=== PATIENT | male | born 2005 | race Caucasian/White ===

== ENCOUNTER 2023-03-08 15:31 | Inpatient (IN) ==
--- NOTE | 2023-03-08 15:42 | ED Triage Note ---
Date of Service March 08, 2023 Provider in Triage Author: Farideh Uriostegui History of Present Illness This patient was briefly evaluated while in triage. An abbreviated physical exam was performed. This patient is a 17-year-old Male who presents to the ED for evaluation of epigastric abdominal pain. Symptoms started yesterday. Notes 2 episodes of vomiting yesterday and diarrhea. He reports subjective jaundice. Denies fevers. Denies PMH. No alcohol use. Denies recent trauma. Physical Exam Constitutional: alert and oriented x3. no acute distress. HEENT: normocephalic, atraumatic. normal conjunctiva.PERRLA. EOM's grossly intact. Respiratory: equal chest rise. normal respiratory effort, no accessory muscle use. Cardiovascular: regular rate and rhythm. MSK: moves all 4 extremities spontaneously Psych:appropriate mood and affect. Initial orders for labs and / or imaging were placed and patient was placed in the waiting area until a bed is available. Please see further documentation for the full ED course.
[2023-03-08 16:40] LABS: Appearance Urine Clear (Clear); Bacteria Urine Automated Negative (Negative); Blood Urine Trace (Negative); Color Urine Dark Yellow; Epithelial Cell Urine Auto 0-5 /lpf (0-5); Glucose Urine UA Negative (Negative); Ketones Urine 3+ (Negative); Leukocyte Esterase Urine 1+ (Negative); Nitrite Urine Positive (Negative); Urobilinogen Urine Negative (Negative); pH Urine 7.5 (4.5-7.5)
[2023-03-08 16:41] LABS: Bilirubin Urine 2+ (Negative); Protein Urine Trace (Negative)
--- NOTE | 2023-03-08 16:43 | Electrocardiogram Report ---
Test Reason : Blood Pressure : / mmHG Vent. Rate : 090 BPM Atrial Rate : 090 BPM P-R Int : 150 ms QRS Dur : 090 ms QT Int : 348 ms P-R-T Axes : 039 055 016 degrees QTc Int : 425 ms Normal sinus rhythm Diffuse Minor Nonspecific T wave abnormality Abnormal ECG No previous ECGs available Confirmed by Tao Pacheco ([id number]) on 03/08/2023 4:43:03 PM Referred By: Confirmed By:Tao Pacheco
[2023-03-08 16:54] LABS: Basophils # (auto) 0.04 K/uL (0.00-0.20); Basophils % (auto) 0.4 %; Eosinophils # (auto) 0.24 K/uL (0.00-0.50); Eosinophils % (auto) 2.2 %; Hematocrit (blood only) 40.9 % (42.0-52.0); Immature Granulocytes # (auto) 0.03 K/uL (0.01-0.20); Immature Granulocytes % (auto) 0.3 %; Lymphocytes # (auto) 0.88 K/uL (1.20-3.40); Lymphocytes % (auto) 7.9 %; Mean Corpuscular Hemoglobin 30.5 pg (25.0-34.0); Mean Corpuscular Hgb Conc 34.2 g/dL (32.0-36.0); Mean Corpuscular Volume 89.1 fL (80.0-100.0); Mean Platelet Volume 9.8 fL (9.4-12.4); Monocytes % (auto) 10.8 %; Neutrophils # (auto) 8.73 K/uL (1.40-6.50); Neutrophils % (auto) 78.4 %; Platelet Count 215 K/uL (130-400); RDW Coefficient of Variation 12.1 % (11.5-14.5); RDW Standard Deviation 39.3 fL (36.4-46.3); Red Blood Count 4.59 M/uL (4.70-6.10); White Blood Count 11.12 K/ul (4.8-10.8)
--- NOTE | 2023-03-08 17:02 | XRay Report ---
XR chest 1V not portable CLINICAL HISTORY: Abdominal pain. COMPARISON STUDY: No previous studies for comparison. FINDINGS: Lung volumes are normal. Lungs are clear. There is no pneumothorax or pleural effusion. Car diac size is normal. Mediastinal contours are normal. There is no evidence for pulmonary edema. There is no lucency under the hemidiaphragms to suggest pneumoperitoneum on upright chest radiograph. IMPRESSION: No acute cardiopulmonary findings. ACT 112: Negative or not required by law. Electronically signed by: Julián Alvarado M.D. 03/08/2023 5:01 PM
[2023-03-08 17:10] LABS: Alanine Aminotransferase 362 U/L (7-52); Albumin Globulin Ratio 1.5 (0.9-2); Albumin Level 4.8 gm/dl (3.4-5.0); Alkaline Phosphatase 196 U/L (34-104); Anion Gap 9 (3-11); Aspartate Aminotransferase 134 U/L (13-39); BUN Creatinine Ratio 9.6 (10-20); Blood Urea Nitrogen 11 mg/dl (6-23); Calcium 9.9 mg/dl (8.6-10.3); Carbon Dioxide 29 mmol/L (21-32); Chloride 102 mmol/L (98-107); Est GFR (African American) 107.5 ml/min; Est GFR (Non-African American) 92.7 ml/min; Globulin 3.1 gm/dl (2.5-4.0); Glucose 92 mg/dl (70-99(Fasting)); Lipase 27 U/L (11-82); Potassium 3.7 mmol/L (3.5-5.1); Sodium 140 mmol/L (136-145); Total Protein 7.9 gm/dl (6.0-8.3)
[2023-03-08] MEDS ORDERED: OPTIRAY 320 500ml IV ONE (17:25)
--- NOTE | 2023-03-08 17:44 | CT Scan Report ---
CT OF THE ABDOMEN AND PELVIS WITH CONTRAST CLINICAL HISTORY: Abdominal pain. Jaundice. COMPARISON STUDY: None. TECHNIQUE: Following IV administration of 83 mL of Optiray, axial images of the abdomen and pelvis we re obtained from the lung bases to the proximal femurs. Images were reviewed in the axial, sagittal, and coronal planes. IV contrast was administered without complication. Automated exposure control wa s utilized for the study. A dose lowering technique was utilized adhering to the principles of ALARA . CT DOSE: 680.12 mGy.cm FINDINGS: Lung bases are unremarkable. No pneumatosis, free air or portal venous gas is present. Live r is unremarkable by CT. There is no biliary or pancreatic ductal dilatation. No peripancreatic or pe richolecystic infiltration is present. Spleen, adrenal glands, kidneys and pancreas are unremarkable. There is no hydronephrosis. Prominent clustered ileocolic lymph nodes are likely benign. Appendix is normal. There is no free fluid. Caliber and wall thickness of small and large bowel are normal. The major vessels are patent. There is no ascites. There is no lymphadenopathy. IMPRESSION: 1. No acute process within the abdomen or pelvis. 2. No biliary ductal dilatation. No hepatic lesions. Unremarkable CT appearance of the liver. 3. Prominent clustered ileocolic lymph nodes which are likely benign. ACT 112: Negative or not required by law. Electronically signed by: Julián Alvarado M.D. 03/08/2023 5:42 PM
[2023-03-08 18:11] LABS: Bilirubin Direct 5.2 mg/dl (0-0.2)
[2023-03-08] MEDS ORDERED: SODIUM CHLORIDE 0.9% 1,000 ML IV ONE (18:12)
[2023-03-08 19:13] LABS: INR 1.1 (0.9-1.1); Prothrombin Time 11.8 Seconds (9.0-12.0)
--- NOTE | 2023-03-08 19:20 | History & Physical Report ---
Date of Service March 08, 2023 Assessment & Plan (1) Acute hepatitis: Plan: -Admit to med/tele -Currently hemodynamically stable, stable on RA, and non-toxic appearing -Presented to the ED today for new onset scleral icterus and possible jaundice -Total bili, ALT, AST, and Alk phos all elevated, AST:ALT not indicative of alcohol induced hepatitis -INR is WNL -Chest xray was negative for acute findings -CT of the abd/pelvis w/con was negative for acute processes and was without signs of biliary ductal dilation of structural hepatic abnormalities -Would think his symptoms would have started earlier and prior to stopping Ashwagandha -Tonsil erythema and swelling is suspicious for viral illness or strep infection, continue to follow workup -Will also obtain CMV and EBV screens, acute hepatitis panel for further evaluation -GI has been consulted and will follow, they do not think that his presentation is due to obstruction at this time and they do not recommend starting N- Acetylcystine therapy at this time for acute hepatitis -Will give light IV hydration overnight -Avoid hepatotoxic agents -OOB for DVT PPX -Regular diet -AM CBC, CMP, mag, PT/INR (2) Chest pain: Plan: -Patient notes substernal chest pain with inspiration -He describes the discomfort as feeling as though something is in his chest -Chest xray negative for acute findings -Low suspicion for PE at this time as he is stable on RA, in NSR, hemodynamically stable, and without signs of DVT in the BL LE's -ECG shows diffuse T-wave elevations -Possible he could have pericarditis or myocarditis -Will obtain high sen trop on admission and order TTE for tomorrow -Continue to monitor on tele (3) Enlarged tonsils: Plan: -Noted on exam, no sing of stridor or airway compromise -EBV screen was negative -Will add on Group A strep PCR -Continue to follow infectious workup Plan The patient was discussed with Dr. Camejo at the time of the admission History of Present Illness Chief Complaint: Scleral icterus and jaundice Primary Care Provider: [facility] [[email or web address]] Kirk is a 17 year old male with no significant PMH who presented to the [facility] ED on 03/08/23 after developing Scleral icterus and jaundice. He remained stable in the ED. Labs were significant for a leukocytosis of 11 with neutrophil predominance of 8, lymphocyte count of 0.88, total bili of 8.0, direct bili of 5.2, AST of 134, ALT of 362, alk phos of 196, and UA with trace protein, 3+ ketones, trace blood, positive nitrites, 2+ bilirubin, 1+ leukocyte esterase, and 10-30 RBC's. Chest xray was negative for acute findings. CT of the abd/pelvis w/IV con was read as "1. No acute process within the abdomen or pelvis. 2. No biliary ductal dilatation. No hepatic lesions. Unremarkable CT appearance of the liver. 3. Prominent clustered ileocolic lymph nodes which are likely benign.". The ED staff spoke with GI who recommended admission with ongoing workup of his acute hepatitis. Prior to admission the patient was ordered 1L NSS. At the time of the exam the patient was sitting in bed in no acute distress. He states that he was in his normal state of health until 03/06. He states that we woke up feeling generally unwell with symptoms such as congestion, body aches, sore throat, nausea, vomiting, non-bloody diarrhea. He states that his symptoms continued through today when he noticed scleral icterus and mild jaundice. He called his uncle who is a Physician who recommended going to the ED for evaluation. When asked, the patient denies recent alcohol use in the past 3 weeks. He denies tobacco or vaping use. He was working out consistently prior to winter and did not work out over . On 03/06 he said he did a very light upper body weight lifting workup. He took 2 doses of Dayquil and one dose of Nyquil since the symptoms started. When asked about supplements he states that he was taking 600 mg daily of Ashwagandha for 3 months last semester while working out. He states he stopped taking it approximately one month ago as he finished the bottle he bought. He has noted substernal chest pain with inspiration with his recent symptoms but denies hemoptysis, coffee ground emesis, and melena. He is not on prescription medications and denies previous history of severe illness or diagnoses as a child. Please refer to Dr. Camejo's attestation for any changes to the treatment plan Allergies Allergy/AdvReac Type Severity Reaction Status Date / Time pollen extracts Allergy Mild Sneezing Verified 03/08/23 18:18 tree and shrub pollen Allergy Mild Sneezing Verified 03/08/23 18:18 Home Medications Medication Instructions Recorded Confirmed Type IT-KH-rdscqr/BU-prnkcg-pzirtnd 1 cap PO DIRECTED PRN Cold 03/08/23 03/08/23 History 10-5-325mg(d)/15-325-6.25mg Symptoms capsules (Vicks DayQuil-NyQuil) ibuprofen 200 mg tablet 400 mg PO Q6H PRN PAIN/FEVER 03/08/23 03/08/23 History Past Med/Surg History Social History Smoking Status: Unknown if ever smoked Preferred Language: Lithuanian Communication Ability: Effective Guide Domestic Tour Required: No Feels Safe at Home: Yes Physical Exam Physical Exam: Physical Exam: General: In no acute distress, stated age, well-nourished, good hygiene HEENT: Normocephalic, atraumatic, + scleral icterus, pupils around round, symmetrical, and reactive to light, moist mucus membranes, patient with erythematous and swollen tonsils, + submandibular lymphadenopathy, trachea midline, no thyromegaly Chest/Pulm: No respiratory distress, symmetrical chest expansion, clear breath sounds throughout Cardiac: RRR, no murmurs noted Abdomen: Negative for ascites and bruising, normoactive bowel sounds, soft, tender to palpation in the RUQ but otherwise non-tender Musculoskeletal: Symmetrical and without signs of acute trauma, upper and lower extremities with full ROM, no atrophy, spasticity, or flaccidity Extremities: Radial, dorsalis pedis, and posterior tibial pulses are intact and symmetrical, no edema noted in the BL LE's Skin: Patient with Scarlatiniform rash noted on the BL forearms Neuro: Alert and oriented to person, place, month, year, and president, no focal defects, no tremors noted Psych: No acute distress, calm and cooperative during the exam Results & Data Results & Data Vital Signs (Past 12 Hours) Vital Signs Temp Pulse Pulse Resp BP BP Pulse Ox 03/08/23 17:34 86 16 112/70 97 03/08/23 15:39 36.9 C 82 16 132/77 95 O2 Del Method 03/08/23 17:34 03/08/23 15:39 Room Air Laboratory Results Abnormal lab results 03/08/23 03/08/23 03/08/23 Range/Units 16:09 16:16 18:53 WBC 11.12 H (4.8-10.8) K/ul RBC 4.59 L (4.70-6.10) M/uL Hct 40.9 L (42.0-52.0) % Neut # (Auto) 8.73 H (1.40-6.50) K/uL Lymph # (Auto) 0.88 L (1.20-3.40) K/uL Hernando # (Auto) 1.20 H (0.11-0.59) K/uL BUN/Creatinine Ratio 9.6 L (10-20) Total Bilirubin 8.0 H (0.2-1.0) mg/dl Direct Bilirubin 5.2 H (0-0.2) mg/dl AST 134 H (13-39) U/L ALT 362 H (7-52) U/L Alkaline Phosphatase 196 H (34-104) U/L Urine Protein Trace H (Negative) Urine Ketones 3+ H (Negative) Urine Blood Trace H (Negative) Urine Nitrite Positive A (Negative) Urine Bilirubin 2+ H (Negative) Ur Leukocyte Esterase 1+ H (Negative) Urine RBC (Auto) 10-30 H (0-4) /hpf Acetaminophen < 3 L (10-30) ug/ml Diagnostic Findings Chest X-Ray 03/08/23 16:07 XR chest 1V not portable CLINICAL HISTORY: Abdominal pain. COMPARISON STUDY: No previous studies for comparison. FINDINGS: Lung volumes are normal. Lungs are clear. There is no pneumothorax or pleural effusion. Cardiac size is normal. Mediastinal contours are normal. There is no evidence for pulmonary edema. There is no lucency under the hemidiaphragms to suggest pneumoperitoneum on upright chest radiograph. IMPRESSION: No acute cardiopulmonary findings. ACT 112: Negative or not required by law. Electronically signed by: Julián Alvarado M.D. 03/08/2023 5:01 PM Abdomen/Pelvis CT 03/08/23 16:45 CT OF THE ABDOMEN AND PELVIS WITH CONTRAST CLINICAL HISTORY: Abdominal pain. Jaundice. COMPARISON STUDY: None. TECHNIQUE: Following IV administration of 83 mL of Optiray, axial images of the abdomen and pelvis were obtained from the lung bases to the proximal femurs. Images were reviewed in the axial, sagittal, and coronal planes. IV contrast was administered without complication. Automated exposure control was utilized for the study. A dose lowering technique was utilized adhering to the principles of ALARA. CT DOSE: 680.12 mGy.cm FINDINGS: Lung bases are unremarkable. No pneumatosis, free air or portal venous gas is present. Liver is unremarkable by CT. There is no biliary or pancreatic ductal dilatation. No peripancreatic or pericholecystic infiltration is present. Spleen, adrenal glands, kidneys and pancreas are unremarkable. There is no hydronephrosis. Prominent clustered ileocolic lymph nodes are likely benign. Appendix is normal. There is no free fluid. Caliber and wall thickness of small and large bowel are normal. The major vessels are patent. There is no ascites. There is no lymphadenopathy. IMPRESSION: 1. No acute process within the abdomen or pelvis. 2. No biliary ductal dilatation. No hepatic lesions. Unremarkable CT appearance of the liver. 3. Prominent clustered ileocolic lymph nodes which are likely benign. ACT 112: Negative or not required by law. Electronically signed by: Julián Alvarado M.D. 03/08/2023 5:42 PM ECG Additional Comments: Normal sinus rhythm Diffuse Minor Nonspecific T wave abnormality Abnormal ECG No previous ECGs available Confirmed by Tao Pacheco ([id number]) on 03/08/2023 4:43:03 PM Code Status & VTE Plan Code Status Full code VTE Prophylaxis Plan VTE Prophylaxis will be ordered: Yes Supervising Physician Co-Signing Physician Notes I personally saw and examined the patient. I verified all moseley points and agree with Jethro Barone PA-C with the following exceptions and/or additions: 17 year old male presents to the ER with scleral icterus and jaundice. Mild epigastric abdominal pain, loss of appetite and generalized fatigue. Also having pleuritic chest pain. No history of hepatitis or liver problems. O/E A&Ox3, well appearing other than jaundiced skin, scleral icterus present, Enlarged and erythematous right tonsil without exudate, HS RRR, no murmurs, Chest CTAB, Abdo mild epigastric pain without rebound or guarding A/P Acute hepatitis - presumably viral given associated macular papular rash on left arm, swollen tonsils, lack of obstruction on CT or significant abdominal pain. CMV, EBV panel sent. Discussed HIV testing but low suspicion of this and will await further workup. No liver failure or suspected excessive acetaminophen to warrant NAC at this stage. Consult GI. Trend LFTs, INR, Plt. Chest pain - ?pleurisy vs. pericarditis. No hypoxia or tachycardia to suggest PE. No EKG changes and troponin negative. TTE ordered for AM. Avoid NSAIDs in setting of acute hepatitis. PG Care Time/CCT Total # of Minutes Spent Total Time Spent with Patient: Total time spent is greater than 50% in coordination of care (as documented) at patient's floor/unit and/or counseling patient: [place] [address] INT INP/OBS CARE 3/75MIN Patient Type New Medical Decision Making High Complexity Diagnoses Acute hepatitis B17.9 Chest pain R07.9 Enlarged tonsils J35.1
[2023-03-08] MEDS ORDERED: FAMOTIDINE 20 MG in SYRINGE 3 ML IV STA (19:46)
[2023-03-08] MEDS ORDERED: FAMOTIDINE 20MG IV PUSH 20 MG/5 ML SYR IV STA (19:48)
[2023-03-08] MEDS ORDERED: ONDANSETRON INJ 2 MG/ML 2 ML VIAL ONE (20:24)
[2023-03-08] MEDS ORDERED: ONDANSETRON INJ 2 MG/ML 2 ML VIAL IV STA (20:24)
[2023-03-08] MEDS ORDERED: ONDANSETRON INJ 2 MG/ML 2 ML VIAL IV PRN (20:24)
[2023-03-08 20:40] LABS: Adenovirus PCR Not Detected (NotDetected); Bordetella parapertussis PCR Not Detected (NotDetected); Bordetella pertussis PCR Not Detected (NotDetected); Chlamydia pneumoniae PCR Not Detected (NotDetected); Coronavirus 229E PCR Not Detected (NotDetected); Coronavirus CoV-2 (COVID19)PCR Not Detected (NotDetected); Coronavirus HKU1 PCR Not Detected (NotDetected); Coronavirus NL63 PCR Not Detected (NotDetected); Coronavirus OC43PCR Not Detected (NotDetected); Human Metapneumovirus PCR Not Detected (NotDetected); Influenza A PCR Not Detected (NotDetected); Influenza B PCR Not Detected (NotDetected); Mycoplasma pneumoniae PCR Not Detected (NotDetected); Parainfluenza Virus 1 PCR Not Detected (NotDetected); Parainfluenza Virus 2 PCR Not Detected (NotDetected); Parainfluenza Virus 3 PCR Not Detected (NotDetected); Parainfluenza Virus 4 PCR Not Detected (NotDetected); Respiratory Syncytial VirusPCR Not Detected (NotDetected); Rhinovirus/Enterovirus PCR Not Detected (NotDetected)
[2023-03-08 21:20] LABS: Troponin I High Sensitivity 5.1 pg/ml (0-20)
[2023-03-08] MEDS: PLASMA-LYTE A 1,000 ML IV SCH (22:19)
--- NOTE | 2023-03-08 22:20 | Emergency Department Note ---
Impression & Plan Acute hepatitis, Abdominal pain, Elevated bilirubin ED Provider Note NAME: BARTOLOME SWANSON AGE: 17 SEX: M : 2005 ARRIVES VIA: Walk-In INFORMANT: Patient ED PROVIDER(S): Jef Santos DO CHIEF COMPLAINT: weak HPI: Patient is a 17-year-old male who presents the ER as he notes he has not been feeling well since Monday. He notes he has had some mild epigastric discomfort associate with nausea. He denies any headache or change in vision. No chest pain or shortness of breath with exception of the pain coming from the epigastric region up into the chest. No dysuria urgency or frequency. No other exacerbating or remitting factors. He has noticed that his urine has been dark in color. No pale stools that he is aware of. No previous abdominal surgeries. He has not been taking Tylenol. He has not drank alcohol in over 3 weeks and drinks about once a week. ADDITIONAL HISTORY OBTAINED: Per HPI Chronic Medical/Social Conditions Affecting Care: Per HPI PAST MEDICAL HISTORY:See Below PAST SURGICAL HISTORY:See Below FAMILY HISTORY:See Below SOCIAL HISTORY:See Below HOME MEDICATIONS:See Below ALLERGIES:See Below VITALS:See Below PHYSICAL EXAMINATION: GENERAL: Sitting up in bed, alert, well appearing, well nourished, no distress, non-toxic EYES: Scleral icterus EYE EXAM: normal conjunctiva. OROPHARYNX:mucous membranes are moist NECK: supple, no nuchal rigidity, no adenopathy, non-tender LUNGS: Clear to auscultation. Normal chest wall mechanics HEART: no murmurs, S1 normal and S2 normal ABDOMEN: abdomen soft, non-tender, normo-active bowel sounds, no masses, no rebound or guarding. UPPER EXTREMITIES: upper extremities are grossly normal. LOWER EXTREMITIES: No pitting edema. NEURO EXAM: Normal sensorium, cranial nerves II-XII grossly intact, normal speech, no gross weakness of arms, no gross weakness of legs. MEDICAL DECISION MAKING: Patient is a 17-year-old male who presents ER for above-stated complaint. IV was established blood work was obtained. Labs show mild leukocytosis of 11,000. No significant anemia. INR unremarkable. BMP was unremarkable as well. T. bili at 8. Direct at 5. LFTs were elevated. Alk phos slightly elevated. Troponin was negative. Lipase was negative. Pro-Vinh was negative. CT abdomen pelvis showed no biliary abnormalities and normal liver. Discussed with gastroenterology and question hepatitis. Hepatitis panel was added mono was negative. Strep was negative. Discussed with the hospitalist for further evaluation management and treatment. Consults/Care Managements Discussions: Per MDM Triage Nursing notes reviewed. Limited review of prior medical records performed Vital Signs: reviewed and remarkable for HTN Differential diagnosis: Differential diagnoses includes but is not limited to gastritis, peptic ulcer disease, GERD, gallbladder disease, pancreatitis, small bowel obstruction, appendicitis, diverticulitis, hernia, urinary tract infection, torsion, perforation, trauma, infectious. ER treatment provided: See below Diagnostics interpreted by me include EKG and cardiac monitoring as listed below: -Cardiac Monitoring: An order was placed for continuous cardiac monitoring. The monitor shows a rate of 70 with sinus rhythm. -Laboratory studies:Interpreted by me as stated above in MDM and shown below. Imaging studies: Xrays: As interpreted by me: Portable AP upright 1 view of the chest shows no focal infiltrate CTs show: CT abdomen pelvis per radiology shows no acute pathology Procedures:none Critical Care: None Past Med/Surg History Social History Smoking Status: Unknown if ever smoked Preferred Language: Macedonian Feels Safe at Home: Yes Allergies Allergies Allergy/AdvReac Type Severity Reaction Status Date / Time pollen extracts Allergy Mild Sneezing Verified 03/08/23 18:18 tree and shrub pollen Allergy Mild Sneezing Verified 03/08/23 18:18 Home Meds Home Medications Medication Instructions Recorded Confirmed [id number]-kbdmll/MD-fveaxm-xbmnnlc 1 cap PO DIRECTED PRN Cold 03/08/23 03/08/23 10-5-325mg(d)/15-325-6.25mg Symptoms capsules (Vicks DayQuil-NyQuil) ibuprofen 200 mg tablet 400 mg PO Q6H PRN PAIN/FEVER 03/08/23 03/08/23 Results & Data (ED) Vital Signs Vital Signs - 24 hr 03/08/23 15:39 03/08/23 17:34 Temperature 36.9 C Temperature Source Temporal Artery Scan Pulse Rate 82 Pulse Rate [Finger] 86 Respiratory Rate 16 16 Respiratory Effort / Characteristics Non-Labored Spontaneous Respiratory Depth Normal Blood Pressure 132/77 Blood Pressure [Left Arm] 112/70 Blood Pressure Mean 95 Blood Pressure Mean [Left Arm] 84 Pulse Oximetry 95 97 Oxygen Delivery Method Room Air Sepsis Recent Fever Within 48 Hours No Sepsis New/Unexplained Change in Mental Status N/A Sepsis Action Taken by Nursing No Action Required Laboratory Data 03/08/23 16:16 03/08/23 16:16 Lab Results 03/08/23 03/08/23 Range/Units 16:09 16:16 WBC 11.12 H (4.8-10.8) K/ul RBC 4.59 L (4.70-6.10) M/uL Hgb 14.0 (14.0-18.0) g/dl Hct 40.9 L (42.0-52.0) % MCV 89.1 (80.0-100.0) fL MCH 30.5 (25.0-34.0) pg MCHC 34.2 (32.0-36.0) g/dL RDW Std Deviation 39.3 (36.4-46.3) fL RDW Coeff of Jakub 12.1 (11.5-14.5) % Plt Count 215 (130-400) K/uL MPV 9.8 (9.4-12.4) fL Immature Gran % (Auto) 0.3 % Neut % (Auto) 78.4 % Lymph % (Auto) 7.9 % Lander % (Auto) 10.8 % Eos % (Auto) 2.2 % Baso % (Auto) 0.4 % Neut # (Auto) 8.73 H (1.40-6.50) K/uL Lymph # (Auto) 0.88 L (1.20-3.40) K/uL Lander # (Auto) 1.20 H (0.11-0.59) K/uL Eos # (Auto) 0.24 (0.00-0.50) K/uL Baso # (Auto) 0.04 (0.00-0.20) K/uL Immature Gran # (Auto) 0.03 (0.01-0.20) K/uL PT 11.8 (9.0-12.0) Seconds INR 1.1 (0.9-1.1) Sodium 140 (136-145) mmol/L Potassium 3.7 (3.5-5.1) mmol/L Chloride 102 (98-107) mmol/L Carbon Dioxide 29 (21-32) mmol/L Anion Gap 9 (3-11) BUN 11 (6-23) mg/dl Creatinine 1.14 (0.6-1.4) mg/dl Est Cr Clr Drug Dosing Not Reportable Est GFR ( Amer) 107.5 ml/min Est GFR (Non-Af Amer) 92.7 ml/min BUN/Creatinine Ratio 9.6 L (10-20) Glucose 92 (70-99(Fasting)) mg/dl Calcium 9.9 (8.6-10.3) mg/dl Total Bilirubin 8.0 H (0.2-1.0) mg/dl Direct Bilirubin 5.2 H (0-0.2) mg/dl AST 134 H (13-39) U/L ALT 362 H (7-52) U/L Alkaline Phosphatase 196 H (34-104) U/L Troponin I High Sens 5.1 (0-20) pg/ml Total Protein 7.9 (6.0-8.3) gm/dl Albumin 4.8 (3.4-5.0) gm/dl Globulin 3.1 (2.5-4.0) gm/dl Albumin/Globulin Ratio 1.5 (0.9-2) Lipase 27 (11-82) U/L Procalcitonin 0.30 (0-0.5) ng/ml Urine Color Dark Yellow Urine Appearance Clear (Clear) Urine pH 7.5 (4.5-7.5) Ur Specific [place] 1.020 (1.000-1.030) Urine Protein Trace H (Negative) Urine Glucose (UA) Negative (Negative) Urine Ketones 3+ H (Negative) Urine Blood Trace H (Negative) Urine Nitrite Positive A (Negative) Urine Bilirubin 2+ H (Negative) Urine Urobilinogen Negative (Negative) Ur Leukocyte Esterase 1+ H (Negative) Urine WBC (Auto) 1-5 (0-5) /hpf Urine RBC (Auto) 10-30 H (0-4) /hpf U Hyaline Cast (Auto) 1-5 (0-5) /lpf U Epithel Cells (Auto) 0-5 (0-5) /lpf Urine Bacteria (Auto) Negative (Negative) Monoscreen Negative (Negative) Administered Medications Discontinued Medications Sodium Chloride (Nss) 1,000 mls @ 999 mls/hr IV .Q1H1M ONE Stop: 03/08/23 19:12 Last Infusion: 03/08/23 19:47 Dose: Infused Documented By: Admin: 03/08/23 18:54 Dose: 999 mls/hr Documented By: MARK Famotidine (Pepcid 20mg Iv Push) 20 mg in 5 mls @ 2.5 mls/min IV NOW STA Stop: 03/08/23 19:49 Last Admin: 03/08/23 20:14 Dose: 2.5 mls/min Documented By: TORITO Ioversol (Optiray 320 500ml) 83 ml IV ONCE ONE Stop: 03/08/23 17:26 Last Admin: 03/08/23 17:25 Dose: 83 ml Documented By: JESSICA Ondansetron HCl (Ondansetron Inj 2 Mg/Ml 2 Ml Vial) 4 mg IV NOW STA Stop: 03/08/23 20:25 Last Admin: 03/08/23 20:30 Dose: Not Given Documented By: TORITO Ondansetron HCl (Ondansetron Inj 2 Mg/Ml 2 Ml Vial) Confirm Administered Dose 4 mg .ROUTE .STK-MED ONE Stop: 03/08/23 20:25 Last Admin: 03/08/23 20:30 Dose: 4 mg Documented By: TORITO Imaging Data Radiologist's Impression: Chest X-Ray 03/08/23 16:07 XR chest 1V not portable CLINICAL HISTORY: Abdominal pain. COMPARISON STUDY: No previous studies for comparison. FINDINGS: Lung volumes are normal. Lungs are clear. There is no pneumothorax or pleural effusion. Cardiac size is normal. Mediastinal contours are normal. There is no evidence for pulmonary edema. There is no lucency under the hemidiaphragms to suggest pneumoperitoneum on upright chest radiograph. IMPRESSION: No acute cardiopulmonary findings. ACT 112: Negative or not required by law. Electronically signed by: Julián Alvarado M.D. 03/08/2023 5:01 PM Abdomen/Pelvis CT 03/08/23 16:45 CT OF THE ABDOMEN AND PELVIS WITH CONTRAST CLINICAL HISTORY: Abdominal pain. Jaundice. COMPARISON STUDY: None. TECHNIQUE: Following IV administration of 83 mL of Optiray, axial images of the abdomen and pelvis were obtained from the lung bases to the proximal femurs. Images were reviewed in the axial, sagittal, and coronal planes. IV contrast was administered without complication. Automated exposure control was utilized for the study. A dose lowering technique was utilized adhering to the principles of ALARA. CT DOSE: 680.12 mGy.cm FINDINGS: Lung bases are unremarkable. No pneumatosis, free air or portal venous gas is present. Liver is unremarkable by CT. There is no biliary or pancreatic ductal dilatation. No peripancreatic or pericholecystic infiltration is present. Spleen, adrenal glands, kidneys and pancreas are unremarkable. There is no hydronephrosis. Prominent clustered ileocolic lymph nodes are likely benign. Appendix is normal. There is no free fluid. Caliber and wall thickness of small and large bowel are normal. The major vessels are patent. There is no ascites. There is no lymphadenopathy. IMPRESSION: 1. No acute process within the abdomen or pelvis. 2. No biliary ductal dilatation. No hepatic lesions. Unremarkable CT appearance of the liver. 3. Prominent clustered ileocolic lymph nodes which are likely benign. ACT 112: Negative or not required by law. Electronically signed by: Julián Alvarado M.D. 03/08/2023 5:42 PM Discharge Plan Visit Data Chief Complaint: Abdominal Pain Stated Complaint: EYES/BODY JUANDICE, DARK PEE, ABDOMINAL PAIN ED Provider: Jef Santos Discharge Problem:
[2023-03-09 05:10] LABS: Basophils # (auto) 0.03 K/uL (0.00-0.20); Basophils % (auto) 0.3 %; Eosinophils # (auto) 0.28 K/uL (0.00-0.50); Eosinophils % (auto) 3.1 %; Hematocrit (blood only) 36.2 % (42.0-52.0); Hemoglobin 12.1 g/dl (14.0-18.0); Immature Granulocytes # (auto) 0.04 K/uL (0.01-0.20); Immature Granulocytes % (auto) 0.4 %; Lymphocytes # (auto) 0.78 K/uL (1.20-3.40); Lymphocytes % (auto) 8.7 %; Mean Corpuscular Hgb Conc 33.4 g/dL (32.0-36.0); Mean Corpuscular Volume 89.8 fL (80.0-100.0); Mean Platelet Volume 10.1 fL (9.4-12.4); Monocytes # (auto) 1.39 K/uL (0.11-0.59); Monocytes % (auto) 15.5 %; Neutrophils # (auto) 6.46 K/uL (1.40-6.50); Platelet Count 196 K/uL (130-400); RDW Coefficient of Variation 11.9 % (11.5-14.5); RDW Standard Deviation 38.8 fL (36.4-46.3); Red Blood Count 4.03 M/uL (4.70-6.10); White Blood Count 8.98 K/ul (4.8-10.8)
[2023-03-09 05:27] LABS: Alanine Aminotransferase 263 U/L (7-52); Albumin Level 4.2 gm/dl (3.4-5.0); Alkaline Phosphatase 176 U/L (34-104); Anion Gap 7 (3-11); Aspartate Aminotransferase 79 U/L (13-39); BUN Creatinine Ratio 10.9 (10-20); Bilirubin,Total 6.8 mg/dl (0.2-1.0); Blood Urea Nitrogen 10 mg/dl (6-23); Calcium 8.7 mg/dl (8.6-10.3); Carbon Dioxide 27 mmol/L (21-32); Chloride 103 mmol/L (98-107); Est GFR (African American) 139.3 ml/min; Est GFR (Non-African American) 120.2 ml/min; Glucose 125 mg/dl (70-99(Fasting)); Potassium 3.6 mmol/L (3.5-5.1); Sodium 137 mmol/L (136-145); Total Protein 6.5 gm/dl (6.0-8.3); Transferrin 170 mg/dl (200-360)
[2023-03-09 05:38] LABS: INR 1.1 (0.9-1.1); Prothrombin Time 11.8 Seconds (9.0-12.0)
[2023-03-09 05:42] LABS: Thyroid Stimulating Hormone 0.626 uIu/ml (0.300-4.500)
[2023-03-09 05:45] LABS: Albumin Globulin Ratio 1.8 (0.9-2); Globulin 2.3 gm/dl (2.5-4.0)
[2023-03-09] MEDS: PLASMA-LYTE A 1,000 ML IV SCH (08:11)
[2023-03-09] MEDS ORDERED: D5W AND NSS 1,000 ML IV SCH (08:30)
[2023-03-09] MEDS ORDERED: FAMOTIDINE 20 MG in SYRINGE 3 ML IV SCH (09:00)
--- NOTE | 2023-03-09 09:36 | Infectious Disease Consult ---
Date of Consultation March 09, 2023 Assessment & Plan (1) Acute hepatitis: Plan 17 yo M with no significant PMH who presented on 03/08 due to feeling unwell since 03/06 with N/V/D, and development of scleral icterus, jaundice. Also reported occasional cough and rhinorrhea (although not frequent, and not his primary symptoms), sore throat, chest pain with inspiration, and an enlarged lymph node in the L neck. On presentation, pt was afebrile, VSS, with labs notable for WBC 11.12, AST 134, ALT 362, alk phos 196, T. bili 8, direct bili 5.2. RVP, rapid strep, monoscreen negative. CXR unremarkable. CT A/P with contrast showed no acute process, unremarkable liver, no biliary ductal dilatation. On social history, patient was recently home for winter, and his mother was sick last week. They traveled to [place] recently. They have a pet dog. Hobbies include working out. He took 600 mg Ashwagandha daily for 3 months last semester while working out, but stopped it approximately 1 month ago. Denies any other medications/supplements. Patient reports he felt improvement last night with return of his appetite. However, today his symptoms have returned and he feels the same. He has not had a BM since yesterday. Micro: 03/08 CMV Ab: pending 03/08 EBV panel: pending 03/08 HAV IgM: pending 03/08 HBV serologies: pending 03/08 HCV Ab: pending 03/08 RVP: negative 03/08 Monoscreen: negative 03/08 Group A Strep PCR: not detected Abx: none Problems: #Elevated LFTs: now downtrending #Nausea/vomiting Discussion: Systemic symptoms with elevated LFTs may indicate a viral infection that is causing liver inflammation. Differential for this is broad and includes hep A/B/C, CMV, EBV, adenovirus, parvovirus, HIV, etc. Fortunately, it appears that his LFTs are now downtrending. Ultimately, we may be unable to find the viral cause, but in most cases there is no treatment and it will just take time for his body to recover. Recommendations: -Follow-up CMV serologies, EBV panel, acute hepatitis panel. Also ordered HIV screen, adenovirus PCR, parvovirus serologies. These results can be followed up as an outpatient if he continues to clinically improve. -Continue to trend LFTs Will continue to follow. Please page [facility] with further questions. Consultation Information Consultation was provided via telemedicine using two-way real-time interactive telecommunication between the patient and the telemedicine provider. For the duration of the visit, the provider was performing the assessment from a different facility than the patient. This includesuse of bluetooth stethoscope forauscultationperformed by the telepresenter that the telemedicine provider can hear if described in the physical exam. Geophysical Laboratory Supervisor contact information: Please call [facility] [phone]. (Phone Number For Physician Use Only) After establishing a telemedicine visit, patient was: Patient was verified with two unique identifiers, Patient/authorized rep acknowledged consent and understanding and Gave permission to continue telehealth session Time Spent with Patient: Initial => 40 min History of Present Illness Reason for Consultation: Hepatitis Attending Physician: Arnav Moore MD History of Present Illness 17 yo M with no significant PMH who presented on 03/08 due to feeling unwell, with N/V/D, scleral icterus, jaundice. Patient reported that he woke up on 03/06 feeling unwell and had N/V/D, felt like "his stomach was eating itself". Also reported occasional cough, rhinorrhea, sore throat, chest pain with inspiration, and an enlarged lymph node in the L neck. He then noticed development of scleral icterus and jaundice, so he presented to the ED. On presentation, pt was afebrile, VSS. Labs showed WBC 11.12, Hb 14, plt 215, Cr 1.14, AST 134, ALT 362, alk phos 196, T. bili 8, direct bili 5.2. Procalcitonin 0.3. RVP negative. Rapid strep negative. Monoscreen negative. CXR unremarkable. CT A/P with contrast showed no acute process, unremarkable liver, no biliary ductal dilatation. Patient was home for winter break, and his mother was sick last week. They [place] to [place] recently. They have a pet dog. Patient denies any recent unusual activities out of the ordinary. He enjoys working out. He took 600 mg Ashwagandha daily for 3 months last semester while working out, but stopped it approximately 1 month ago. Denies any other medications/supplements. Patient reports he felt improvement last night with return of his appetite. However, today his symptoms have returned and he feels the same. He has not had a BM since yesterday. Allergies Allergy/AdvReac Type Severity Reaction Status Date / Time pollen extracts Allergy Mild Sneezing Verified 03/08/23 18:18 tree and shrub pollen Allergy Mild Sneezing Verified 03/08/23 18:18 Home Medications Medication Instructions Recorded Confirmed Type RY-RX-lztamn/VV-kmagjh-oktksbs 1 cap PO DIRECTED PRN Cold 03/08/23 03/08/23 History 10-5-325mg(d)/15-325-6.25mg Symptoms capsules (Vicks DayQuil-NyQuil) ibuprofen 200 mg tablet 400 mg PO Q6H PRN PAIN/FEVER 03/08/23 03/08/23 History Patient History Social History Smoking Status: Unknown if ever smoked Preferred Language: Beninese Communication Ability: Effective [employer]fter Required: No Feels Safe at Home: Yes Review of System A complete ROS was performed and is negative except as mentioned in the HPI. Physical Exam Physical Exam: GEN: laying in bed in NAD. HEENT: Normocephalic, atraumatic. LAD: L neck lymphadenopathy RESP: No increased work of breathing ABD: Soft, non-distended, no rebound/guarding. Tender to palpation in epigastric region EXT: No LE edema. Warm, well-perfused. SKIN: Mild patchy erythema on forearms, neck NEURO: Alert and oriented. Answers all questions appropriately. Speech not slurred. PSYCH: Normal mood, affect appropriate. Results & Data Vital Signs (Past 12 Hours) Vital Signs Pulse Pulse Pulse Resp BP BP Pulse Ox 03/09/23 08:25 03/09/23 08:00 82 82 18 110/43 L 95 03/09/23 06:55 84 03/09/23 04:29 102 H 24 94/49 L 95 03/08/23 23:55 94 H 03/08/23 23:00 91 H 16 03/08/23 22:19 78 18 138/60 03/08/23 22:00 82 19 Pulse Ox O2 Del Method O2 Del Method 03/09/23 08:25 98 Room Air 03/09/23 08:00 Room Air 03/09/23 06:55 03/09/23 04:29 Room Air 03/08/23 23:55 03/08/23 23:00 03/08/23 22:19 03/08/23 22:00 Laboratory Results Short CBC 03/08/23 03/09/23 Range/Units 16:16 03:54 WBC 11.12 H 8.98 (4.8-10.8) K/ul Hgb 14.0 12.1 L (14.0-18.0) g/dl Hct 40.9 L 36.2 L (42.0-52.0) % Plt Count 215 196 (130-400) K/uL BMP 03/08/23 03/09/23 16:16 03:54 Sodium 140 137 Potassium 3.7 3.6 Chloride 102 103 Carbon Dioxide 29 27 BUN 11 10 Creatinine 1.14 0.92 Glucose 92 125 H Calcium 9.9 8.7 Cardiac Enzymes 03/08/23 Range/Units 18:53 Total Creatine Kinase 63 (30-223) U/L Liver Function 03/08/23 03/09/23 Range/Units 16:16 03:54 Total Bilirubin 8.0 H 6.8 H (0.2-1.0) mg/dl Direct Bilirubin 5.2 H (0-0.2) mg/dl AST 134 H 79 H (13-39) U/L ALT 362 H 263 H (7-52) U/L Alkaline Phosphatase 196 H 176 H (34-104) U/L Albumin 4.8 4.2 (3.4-5.0) gm/dl Urine 03/08/23 Range/Units 16:09 Urine Color Dark Yellow Urine Appearance Clear (Clear) Urine pH 7.5 (4.5-7.5) Ur Specific [place] 1.020 (1.000-1.030) Urine Protein Trace H (Negative) Urine Glucose (UA) Negative (Negative) Diagnostic Findings Chest X-Ray 03/08/23 16:07 XR chest 1V not portable CLINICAL HISTORY: Abdominal pain. COMPARISON STUDY: No previous studies for comparison. FINDINGS: Lung volumes are normal. Lungs are clear. There is no pneumothorax or pleural effusion. Cardiac size is normal. Mediastinal contours are normal. There is no evidence for pulmonary edema. There is no lucency under the hemidiaphragms to suggest pneumoperitoneum on upright chest radiograph. IMPRESSION: No acute cardiopulmonary findings. ACT 112: Negative or not required by law. Electronically signed by: Julián Alvarado M.D. 03/08/2023 5:01 PM Abdomen/Pelvis CT 03/08/23 16:45 CT OF THE ABDOMEN AND PELVIS WITH CONTRAST CLINICAL HISTORY: Abdominal pain. Jaundice. COMPARISON STUDY: None. TECHNIQUE: Following IV administration of 83 mL of Optiray, axial images of the abdomen and pelvis were obtained from the lung bases to the proximal femurs. Images were reviewed in the axial, sagittal, and coronal planes. IV contrast was administered without complication. Automated exposure control was utilized for the study. A dose lowering technique was utilized adhering to the principles of ALARA. CT DOSE: 680.12 mGy.cm FINDINGS: Lung bases are unremarkable. No pneumatosis, free air or portal venous gas is present. Liver is unremarkable by CT. There is no biliary or pancreatic ductal dilatation. No peripancreatic or pericholecystic infiltration is present. Spleen, adrenal glands, kidneys and pancreas are unremarkable. There is no hydronephrosis. Prominent clustered ileocolic lymph nodes are likely benign. Appendix is normal. There is no free fluid. Caliber and wall thickness of small and large bowel are normal. The major vessels are patent. There is no ascites. There is no lymphadenopathy. IMPRESSION: 1. No acute process within the abdomen or pelvis. 2. No biliary ductal dilatation. No hepatic lesions. Unremarkable CT appearance of the liver. 3. Prominent clustered ileocolic lymph nodes which are likely benign. ACT 112: Negative or not required by law. Electronically signed by: Julián Alvarado M.D. 03/08/2023 5:42 PM Medications Administered Current Inpatient Medications Dextrose/Sodium Chloride (D5w And Nss) 1,000 mls @ 80 mls/hr IV .[id number] COUNTS INCLUDE 234 BEDS AT [facility] Stop: 04/08/23 08:29 Last Admin: 03/09/23 09:48 Dose: 80 mls/hr Ondansetron HCl (Ondansetron Inj 2 Mg/Ml 2 Ml Vial) 4 mg IV Q4H PRN PRN Reason: Nausea And Vomiting Stop: 04/07/23 20:23 Last Admin: 03/09/23 08:49 Dose: 4 mg
--- NOTE | 2023-03-09 11:10 | Gastrointestinal Consultation ---
Date of Consultation March 09, 2023 Assessment & Plan (1) Acute hepatitis: Pleasant young man with abnormal LFT's that are improving since he has been in the hospital. I agree with Infectious Disease Medical Records Assistant that this is likely related to a viral infection with the liver either directly involved or elevated LFT's just related to that general infection. Most common in this age group would be EBV infection but there are numerous other possibilities. He really has no risk factors for hepatitis A,B or C. In fact we may never know the reason or the specific infection here. His labs are improving so I do not see a reason that he needs to stay in hospital unless his other symptoms keep him in. He does not need to be in for the elevated LFT's or "acute hepatitis". History of Present Illness Reason for Consultation: hepatitis Attending Physician: Arnav Moore MD History of Present Illness 17 year old man with several days chest pain, fatigue, nausea and vomiting that evolved to include yellow eyes and brown/red urine. He does not remember any sick contacts. He did have some epigastric pain with this illness but at my visit that pain has dissipated. He has also had headaches and that is the main problem that he has now. He does not now nor has he ever done IV drugs. He drinks but not of significant amount. He does not eat raw seafood. In the ER he was noted to have bilirubin of 8 with other LFT's elevated (see below). CT scan of the abdomen and pelvis was unremarkable Allergies Allergy/AdvReac Type Severity Reaction Status Date / Time pollen extracts Allergy Mild Sneezing Verified 03/08/23 18:18 tree and shrub pollen Allergy Mild Sneezing Verified 03/08/23 18:18 Home Medications Medication Instructions Recorded Confirmed Type GD-NE-zzstwu/JK-ikrukx-ndwszrm 1 cap PO DIRECTED PRN Cold 03/08/23 03/08/23 History 10-5-325mg(d)/15-325-6.25mg Symptoms capsules (Vicks DayQuil-NyQuil) ibuprofen 200 mg tablet 400 mg PO Q6H PRN PAIN/FEVER 03/08/23 03/08/23 History Patient History Social History Smoking Status: Unknown if ever smoked Preferred Language: Irish Communication Ability: Effective 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 Feels Safe at Home: Yes Review of Systems Review of Systems: All systems reviewed & are unremarkable except as noted in HPI & below Physical Exam Constitutional: WD/WN, vitals as above Eyes: sclerae not anicteric Neck: trachea midline, no thyromegaly Respiratory: normal respiratory effort, lungs clear to auscultation Cardiovascular: RRR, no murmur, no edema Gastrointestinal (Abdomen): normal bowel sounds, soft, nontender, no hepato splenomegaly Results & Data Vital Signs (Past 12 Hours) Vital Signs Pulse Pulse Pulse Resp BP Pulse Ox Pulse Ox 03/09/23 08:25 98 03/09/23 08:00 82 82 18 110/43 L 95 03/09/23 06:55 84 03/09/23 04:29 102 H 24 94/49 L 95 03/08/23 23:55 94 H O2 Del Method O2 Del Method 03/09/23 08:25 Room Air 03/09/23 08:00 Room Air 03/09/23 06:55 03/09/23 04:29 Room Air 03/08/23 23:55 Laboratory Results 03/09/23 03/09/23 03/09/23 Range/Units 10:15 10:14 03:54 WBC 8.98 (4.8-10.8) K/ul RBC 4.03 L (4.70-6.10) M/uL Hgb 12.1 L (14.0-18.0) g/dl Hct 36.2 L (42.0-52.0) % MCV 89.8 (80.0-100.0) fL MCH 30.0 (25.0-34.0) pg MCHC 33.4 (32.0-36.0) g/dL RDW Std Deviation 38.8 (36.4-46.3) fL RDW Coeff of Jakub 11.9 (11.5-14.5) % Plt Count 196 (130-400) K/uL MPV 10.1 (9.4-12.4) fL Immature Gran % (Auto) 0.4 % Neut % (Auto) 72.0 % Lymph % (Auto) 8.7 % Weld % (Auto) 15.5 % Eos % (Auto) 3.1 % Baso % (Auto) 0.3 % Neut # (Auto) 6.46 (1.40-6.50) K/uL Lymph # (Auto) 0.78 L (1.20-3.40) K/uL Weld # (Auto) 1.39 H (0.11-0.59) K/uL Eos # (Auto) 0.28 (0.00-0.50) K/uL Baso # (Auto) 0.03 (0.00-0.20) K/uL Immature Gran # (Auto) 0.04 (0.01-0.20) K/uL PT 11.8 (9.0-12.0) Seconds INR 1.1 (0.9-1.1) Sodium 137 (136-145) mmol/L Potassium 3.6 (3.5-5.1) mmol/L Chloride 103 (98-107) mmol/L Carbon Dioxide 27 (21-32) mmol/L Anion Gap 7 (3-11) BUN 10 (6-23) mg/dl Creatinine 0.92 (0.6-1.4) mg/dl Est Cr Clr Drug Dosing Not Reportable Est GFR ( Amer) 139.3 ml/min Est GFR (Non-Af Amer) 120.2 ml/min BUN/Creatinine Ratio 10.9 (10-20) Glucose 125 H (70-99(Fasting)) mg/dl Calcium 8.7 (8.6-10.3) mg/dl Transferrin 170 L (200-360) mg/dl Total Bilirubin 6.8 H (0.2-1.0) mg/dl Direct Bilirubin (0-0.2) mg/dl AST 79 H (13-39) U/L ALT 263 H (7-52) U/L Alkaline Phosphatase 176 H (34-104) U/L Total Creatine Kinase (30-223) U/L Troponin I High Sens (0-20) pg/ml Total Protein 6.5 (6.0-8.3) gm/dl Albumin 4.2 (3.4-5.0) gm/dl Globulin 2.3 L (2.5-4.0) gm/dl Albumin/Globulin Ratio 1.8 (0.9-2) Lipase (11-82) U/L Procalcitonin (0-0.5) ng/ml TSH 0.626 (0.300-4.500) uIu/ml Urine Color Urine Appearance (Clear) Urine pH (4.5-7.5) Ur Specific [place] (1.000-1.030) Urine Protein (Negative) Urine Glucose (UA) (Negative) Urine Ketones (Negative) Urine Blood (Negative) Urine Nitrite (Negative) Urine Bilirubin (Negative) Urine Urobilinogen (Negative) Ur Leukocyte Esterase (Negative) Urine WBC (Auto) (0-5) /hpf Urine RBC (Auto) (0-4) /hpf U Hyaline Cast (Auto) (0-5) /lpf U Epithel Cells (Auto) (0-5) /lpf Urine Bacteria (Auto) (Negative) Acetaminophen (10-30) ug/ml Ethyl Alcohol mg/dL (<10.0) mg/dl Adenovirus Source Pending Adenovirus (PCR) Pending (NotDetected) B. pertussis DNA (PCR) (NotDetected) B.parapertussis DNA PCR (NotDetected) C. pneumoniae DNA (PCR) (NotDetected) Coronavirus OC43 (PCR) (NotDetected) Coronavirus HKU1 (PCR) (NotDetected) Coronavirus 229E (PCR) (NotDetected) SARS-CoV-2 (PCR) (NotDetected) Coronavirus NL63 (PCR) (NotDetected) CMV IgM Ab CMV IgG Ab/TORCH EBV Capsid Ag IgG Ab EBV Capsid Ag IgM Ab EBV EA Restrict+Diffuse EBV Nuclear Antigen Ab EBV Antibody Interp Hepatitis A IgM Ab Hep Bs Antigen Hep Bs Ag Confirmation Hep B Core IgM Ab Hepatitis C Ab (EIA) Monoscreen (Negative) HIV (1&2) Ag & Ab Conf Pending Human Metapneumovir PCR (NotDetected) Influenza Type A (PCR) (NotDetected) Influenza Type B (PCR) (NotDetected) M. pneumoniae (PCR) (NotDetected) Parainfluenza 1 (PCR) (NotDetected) Parainfluenza 2 (PCR) (NotDetected) Parainfluenza 3 (PCR) (NotDetected) Parainfluenza 4 (PCR) (NotDetected) Parvovirus IgG Ab Index Pending Parvovirus IgM Ab Index Pending RSV (PCR) (NotDetected) Entero/Rhino (PCR) (NotDetected) Group A Strep (PCR) (NotDetected) 03/08/23 03/08/23 03/08/23 Range/Units 20:13 19:37 18:53 WBC (4.8-10.8) K/ul RBC (4.70-6.10) M/uL Hgb (14.0-18.0) g/dl Hct (42.0-52.0) % MCV (80.0-100.0) fL MCH (25.0-34.0) pg MCHC (32.0-36.0) g/dL RDW Std Deviation (36.4-46.3) fL RDW Coeff of Jakub (11.5-14.5) % Plt Count (130-400) K/uL MPV (9.4-12.4) fL Immature Gran % (Auto) % Neut % (Auto) % Lymph % (Auto) % Weld % (Auto) % Eos % (Auto) % Baso % (Auto) % Neut # (Auto) (1.40-6.50) K/uL Lymph # (Auto) (1.20-3.40) K/uL Weld # (Auto) (0.11-0.59) K/uL Eos # (Auto) (0.00-0.50) K/uL Baso # (Auto) (0.00-0.20) K/uL Immature Gran # (Auto) (0.01-0.20) K/uL PT (9.0-12.0) Seconds INR (0.9-1.1) Sodium (136-145) mmol/L Potassium (3.5-5.1) mmol/L Chloride (98-107) mmol/L Carbon Dioxide (21-32) mmol/L Anion Gap (3-11) BUN (6-23) mg/dl Creatinine (0.6-1.4) mg/dl Est Cr Clr Drug Dosing Est GFR ( Amer) ml/min Est GFR (Non-Af Amer) ml/min BUN/Creatinine Ratio (10-20) Glucose (70-99(Fasting)) mg/dl Calcium (8.6-10.3) mg/dl Transferrin (200-360) mg/dl Total Bilirubin (0.2-1.0) mg/dl Direct Bilirubin (0-0.2) mg/dl AST (13-39) U/L ALT (7-52) U/L Alkaline Phosphatase (34-104) U/L Total Creatine Kinase 63 (30-223) U/L Troponin I High Sens (0-20) pg/ml Total Protein (6.0-8.3) gm/dl Albumin (3.4-5.0) gm/dl Globulin (2.5-4.0) gm/dl Albumin/Globulin Ratio (0.9-2) Lipase (11-82) U/L Procalcitonin (0-0.5) ng/ml TSH (0.300-4.500) uIu/ml Urine Color Urine Appearance (Clear) Urine pH (4.5-7.5) Ur Specific [place] (1.000-1.030) Urine Protein (Negative) Urine Glucose (UA) (Negative) Urine Ketones (Negative) Urine Blood (Negative) Urine Nitrite (Negative) Urine Bilirubin (Negative) Urine Urobilinogen (Negative) Ur Leukocyte Esterase (Negative) Urine WBC (Auto) (0-5) /hpf Urine RBC (Auto) (0-4) /hpf U Hyaline Cast (Auto) (0-5) /lpf U Epithel Cells (Auto) (0-5) /lpf Urine Bacteria (Auto) (Negative) Acetaminophen < 3 L (10-30) ug/ml Ethyl Alcohol mg/dL < 10.0 (<10.0) mg/dl Adenovirus Source Adenovirus (PCR) Not Detected (NotDetected) B. pertussis DNA (PCR) Not Detected (NotDetected) B.parapertussis DNA PCR Not Detected (NotDetected) C. pneumoniae DNA (PCR) Not Detected (NotDetected) Coronavirus OC43 (PCR) Not Detected (NotDetected) Coronavirus HKU1 (PCR) Not Detected (NotDetected) Coronavirus 229E (PCR) Not Detected (NotDetected) SARS-CoV-2 (PCR) Not Detected (NotDetected) Coronavirus NL63 (PCR) Not Detected (NotDetected) CMV IgM Ab Pending CMV IgG Ab/TORCH Pending EBV Capsid Ag IgG Ab Pending EBV Capsid Ag IgM Ab Pending EBV EA Restrict+Diffuse Pending EBV Nuclear Antigen Ab Pending EBV Antibody Interp Pending Hepatitis A IgM Ab Pending Hep Bs Antigen Pending Hep Bs Ag Confirmation Pending Hep B Core IgM Ab Pending Hepatitis C Ab (EIA) Pending Monoscreen (Negative) HIV (1&2) Ag & Ab Conf Human Metapneumovir PCR Not Detected (NotDetected) Influenza Type A (PCR) Not Detected (NotDetected) Influenza Type B (PCR) Not Detected (NotDetected) M. pneumoniae (PCR) Not Detected (NotDetected) Parainfluenza 1 (PCR) Not Detected (NotDetected) Parainfluenza 2 (PCR) Not Detected (NotDetected) Parainfluenza 3 (PCR) Not Detected (NotDetected) Parainfluenza 4 (PCR) Not Detected (NotDetected) Parvovirus IgG Ab Index Parvovirus IgM Ab Index RSV (PCR) Not Detected (NotDetected) Entero/Rhino (PCR) Not Detected (NotDetected) Group A Strep (PCR) NOT DETECTED (NotDetected) 03/08/23 03/08/23 Range/Units 16:16 16:09 WBC 11.12 H (4.8-10.8) K/ul RBC 4.59 L (4.70-6.10) M/uL Hgb 14.0 (14.0-18.0) g/dl Hct 40.9 L (42.0-52.0) % MCV 89.1 (80.0-100.0) fL MCH 30.5 (25.0-34.0) pg MCHC 34.2 (32.0-36.0) g/dL RDW Std Deviation 39.3 (36.4-46.3) fL RDW Coeff of Jakub 12.1 (11.5-14.5) % Plt Count 215 (130-400) K/uL MPV 9.8 (9.4-12.4) fL Immature Gran % (Auto) 0.3 % Neut % (Auto) 78.4 % Lymph % (Auto) 7.9 % Weld % (Auto) 10.8 % Eos % (Auto) 2.2 % Baso % (Auto) 0.4 % Neut # (Auto) 8.73 H (1.40-6.50) K/uL Lymph # (Auto) 0.88 L (1.20-3.40) K/uL Weld # (Auto) 1.20 H (0.11-0.59) K/uL Eos # (Auto) 0.24 (0.00-0.50) K/uL Baso # (Auto) 0.04 (0.00-0.20) K/uL Immature Gran # (Auto) 0.03 (0.01-0.20) K/uL PT 11.8 (9.0-12.0) Seconds INR 1.1 (0.9-1.1) Sodium 140 (136-145) mmol/L Potassium 3.7 (3.5-5.1) mmol/L Chloride 102 (98-107) mmol/L Carbon Dioxide 29 (21-32) mmol/L Anion Gap 9 (3-11) BUN 11 (6-23) mg/dl Creatinine 1.14 (0.6-1.4) mg/dl Est Cr Clr Drug Dosing Not Reportable Est GFR ( Amer) 107.5 ml/min Est GFR (Non-Af Amer) 92.7 ml/min BUN/Creatinine Ratio 9.6 L (10-20) Glucose 92 (70-99(Fasting)) mg/dl Calcium 9.9 (8.6-10.3) mg/dl Transferrin (200-360) mg/dl Total Bilirubin 8.0 H (0.2-1.0) mg/dl Direct Bilirubin 5.2 H (0-0.2) mg/dl AST 134 H (13-39) U/L ALT 362 H (7-52) U/L Alkaline Phosphatase 196 H (34-104) U/L Total Creatine Kinase (30-223) U/L Troponin I High Sens 5.1 (0-20) pg/ml Total Protein 7.9 (6.0-8.3) gm/dl Albumin 4.8 (3.4-5.0) gm/dl Globulin 3.1 (2.5-4.0) gm/dl Albumin/Globulin Ratio 1.5 (0.9-2) Lipase 27 (11-82) U/L Procalcitonin 0.30 (0-0.5) ng/ml TSH (0.300-4.500) uIu/ml Urine Color Dark Yellow Urine Appearance Clear (Clear) Urine pH 7.5 (4.5-7.5) Ur Specific [place] 1.020 (1.000-1.030) Urine Protein Trace H (Negative) Urine Glucose (UA) Negative (Negative) Urine Ketones 3+ H (Negative) Urine Blood Trace H (Negative) Urine Nitrite Positive A (Negative) Urine Bilirubin 2+ H (Negative) Urine Urobilinogen Negative (Negative) Ur Leukocyte Esterase 1+ H (Negative) Urine WBC (Auto) 1-5 (0-5) /hpf Urine RBC (Auto) 10-30 H (0-4) /hpf U Hyaline Cast (Auto) 1-5 (0-5) /lpf U Epithel Cells (Auto) 0-5 (0-5) /lpf Urine Bacteria (Auto) Negative (Negative) Acetaminophen (10-30) ug/ml Ethyl Alcohol mg/dL (<10.0) mg/dl Adenovirus Source Adenovirus (PCR) (NotDetected) B. pertussis DNA (PCR) (NotDetected) B.parapertussis DNA PCR (NotDetected) C. pneumoniae DNA (PCR) (NotDetected) Coronavirus OC43 (PCR) (NotDetected) Coronavirus HKU1 (PCR) (NotDetected) Coronavirus 229E (PCR) (NotDetected) SARS-CoV-2 (PCR) (NotDetected) Coronavirus NL63 (PCR) (NotDetected) CMV IgM Ab CMV IgG Ab/TORCH EBV Capsid Ag IgG Ab EBV Capsid Ag IgM Ab EBV EA Restrict+Diffuse EBV Nuclear Antigen Ab EBV Antibody Interp Hepatitis A IgM Ab Hep Bs Antigen Hep Bs Ag Confirmation Hep B Core IgM Ab Hepatitis C Ab (EIA) Monoscreen Negative (Negative) HIV (1&2) Ag & Ab Conf Human Metapneumovir PCR (NotDetected) Influenza Type A (PCR) (NotDetected) Influenza Type B (PCR) (NotDetected) M. pneumoniae (PCR) (NotDetected) Parainfluenza 1 (PCR) (NotDetected) Parainfluenza 2 (PCR) (NotDetected) Parainfluenza 3 (PCR) (NotDetected) Parainfluenza 4 (PCR) (NotDetected) Parvovirus IgG Ab Index Parvovirus IgM Ab Index RSV (PCR) (NotDetected) Entero/Rhino (PCR) (NotDetected) Group A Strep (PCR) (NotDetected) Diagnostic Findings Chest X-Ray 03/08/23 16:07 XR chest 1V not portable CLINICAL HISTORY: Abdominal pain. COMPARISON STUDY: No previous studies for comparison. FINDINGS: Lung volumes are normal. Lungs are clear. There is no pneumothorax or pleural effusion. Cardiac size is normal. Mediastinal contours are normal. There is no evidence for pulmonary edema. There is no lucency under the hemidiaphragms to suggest pneumoperitoneum on upright chest radiograph. IMPRESSION: No acute cardiopulmonary findings. ACT 112: Negative or not required by law. Electronically signed by: Julián Alvarado M.D. 03/08/2023 5:01 PM Abdomen/Pelvis CT 03/08/23 16:45 CT OF THE ABDOMEN AND PELVIS WITH CONTRAST CLINICAL HISTORY: Abdominal pain. Jaundice. COMPARISON STUDY: None. TECHNIQUE: Following IV administration of 83 mL of Optiray, axial images of the abdomen and pelvis were obtained from the lung bases to the proximal femurs. Images were reviewed in the axial, sagittal, and coronal planes. IV contrast was administered without complication. Automated exposure control was utilized for the study. A dose lowering technique was utilized adhering to the principles of ALARA. CT DOSE: 680.12 mGy.cm FINDINGS: Lung bases are unremarkable. No pneumatosis, free air or portal venous gas is present. Liver is unremarkable by CT. There is no biliary or pancreatic ductal dilatation. No peripancreatic or pericholecystic infiltration is present. Spleen, adrenal glands, kidneys and pancreas are unremarkable. There is no hydronephrosis. Prominent clustered ileocolic lymph nodes are likely benign. Appendix is normal. There is no free fluid. Caliber and wall thickness of small and large bowel are normal. The major vessels are patent. There is no ascites. There is no lymphadenopathy. IMPRESSION: 1. No acute process within the abdomen or pelvis. 2. No biliary ductal dilatation. No hepatic lesions. Unremarkable CT appearance of the liver. 3. Prominent clustered ileocolic lymph nodes which are likely benign. ACT 112: Negative or not required by law. Electronically signed by: Julián Alvaardo M.D. 03/08/2023 5:42 PM
--- NOTE | 2023-03-09 12:16 | Discharge Summary ---
Date of Service March 09, 2023 Admission HPI Per Admitting Provider Kirk is a 17 year old male with no significant PMH who presented to the [facility] ED on 03/08/23 after developing Scleral icterus and jaundice. He remained stable in the ED. Labs were significant for a leukocytosis of 11 with neutrophil predominance of 8, lymphocyte count of 0.88, total bili of 8.0, direct bili of 5.2, AST of 134, ALT of 362, alk phos of 196, and UA with trace protein, 3+ ketones, trace blood, positive nitrites, 2+ bilirubin, 1+ leukocyte esterase, and 10-30 RBC's. Chest xray was negative for acute findings. CT of the abd/pelvis w/IV con was read as "1. No acute process within the abdomen or pelv is. 2. No biliary ductal dilatation. No hepatic lesions. Unremarkable CT appearance of the liver. 3. Prominent clustered ileocolic lymph nodes which are likely benign.". The ED staff spoke with GI who recommended admission with ongoing workup of his acute hepatitis. Prior to admission the patient was ordered 1L NSS. At the time of the exam the patient was sitting in bed in no acute distress. He states that he was in his normal state of health until 03/06. He states that we woke up feeling generally unwell with symptoms such as congestion, body aches, sore throat, nausea, vomiting, non-bloody diarrhea. He states that his symptoms continued through today when he noticed scleral icterus and mild jaundice. He called his uncle who is a Physician who recommended going to the ED for evaluation. When asked, the patient denies recent alcohol use in the past 3 weeks. He denies tobacco or vaping use. He was working out consistently prior to winter break and did not work out over break. On 03/06 he said he did a very light upper body weight lifting workup. He took 2 doses of Dayquil and one dose of Nyquil since the symptoms started. When asked about supplements he states that he was taking 600 mg daily of Ashwagandha for 3 months last semester while working out. He states he stopped taking it approximately one month ago as he finished the bottle he bought. He has noted substernal chest pain with inspiration with his recent symptoms but denies hemoptysis, coffee ground emesis, and melena. He is not on prescription medications and denies previous history of severe illness or diagnoses as a child. Please refer to Dr. Camejo's attestation for any changes to the treatment plan Principal Diagnosis Suspected viral illness with hepatitis and mild jaundice Discharge Exam General-alert and oriented x3, no fever, no chills HEENT-head atraumatic and normocephalic, mild scleral icterus, pupils equal and reactive to light, extraocular muscles intact Neck-no lymphadenopathy or thyromegaly, trachea midline Chest-clear to auscultation percussion. No rales wheezing or rhonchi Cardiac-regular rate and rhythm, normal S1 and S2, no murmurs Abdomen-normal bowel sounds, nontender, no hepatosplenomegaly Extremities-no cyanosis, clubbing, or edema Neuro-cranial nerves II through XII intact, motor and sensory function within normal limits, strength symmetrical, no focal deficits Psych-normal affect, normal mood Discharge Data Allergies Allergy/AdvReac Type Severity Reaction Status Date / Time pollen extracts Allergy Mild Sneezing Verified 03/08/23 18:18 tree and shrub pollen Allergy Mild Sneezing Verified 03/08/23 18:18 Consultations 03/08/23 18:53 ED Decision to Admit Stat 03/08/23 19:16 Consult Gastroenterology Routine 03/09/23 08:21 Consult Infectious Diseases Routine Ordered Studies 03/08/23 16:45 CT abd pelvis IV con only Stat Hospital Course (1) Acute hepatitis: Suspected viral etiology with associated hyperbilirubinemia and mild scleral icterus. Appreciate ID consultation and GI consultation. Multiple lab studies remain pending. However, he is medically stable and can be discharged home today. (2) Chest pain: Atypical. Noncardiac. (3) Enlarged tonsils: Hard to say if this is chronic or acute. No strep tonsillitis on examination. Continued outpatient follow-up Plan Home today, March 09. He will not return to classes until next Monday. Follow-up with [facility] to review outstanding lab work Total Time Total Time Spent Total Time Spent (In Minutes): 45-minute Discharge Plan Discharge Items Patient Disposition: Home - Self-Care Reason For Visit: ACUTE HEPATITIS Discharge Diagnosis: Viral illness with hepatitis and hyperbilirubinemia Activity: Resume your previous activity Non-emergency contact: Primary Care Provider Call non-emergency contact if: your symptoms worsen Follow-up/Referrals: [facility] [Primary Care Provider] - Diet: Regular Addtl Attending Provider Instructions: Follow-up with [facility] in 1 week to review lab testing that is still pending Pending Studies at Discharge: Yes Studies:: Multiple lab tests Stand-Alone Forms: My [facility], Work/School Release, Smoking Cessation Medications and DC Order Prescriptions: Continued ibuprofen 200 mg Tablet 400 mg PO Q6H PRN (Reason: PAIN/FEVER) Vicks DayQuil-NyQuil 10-5-325mg(d)/ 15-325-6.25mg Capsule, Sequential 1 cap PO DIRECTED PRN (Reason: Cold Symptoms) Discharge Orders: Discharge Order (Routine); Ordered 03/09/23 Ordered By: Arnav Moore Admission Data Admit Date/Time: 03/08/23 18:51 Attending Provider: Arnav Moore Admit Provider: Mark Camejo Primary Care Provider: [facility] Other Providers: Mark Camejo; Darline Leong Jr; Geno Galicia; Winifred Luke; Silvina Salas; Kailee Mandujano; Karina Michelle; Carlota Teixeira; Nithya Feliciano; Stephanie Alford Coding Level of Care Code 94603 INP/OBS DISCH >30 MIN Diagnoses Acute hepatitis B17.9 Chest pain R07.9 Enlarged tonsils J35.1
--- NOTE | 2023-03-09 12:17 | XCELERA ---
[id number] \\[id number]
[2023-03-10 13:23] LABS: HBSAG NON-REACTIVE (NON-REACTIVE); Hepatitis A Antibody IgM NON-REACTIVE (NON-REACTIVE); Hepatitis B Core Antibody IgM NON-REACTIVE (NON-REACTIVE)
[2023-03-10 14:41] LABS: CMV IgG Antibody <0.60 U/mL; CMV IgM Antibody <30.00 AU/mL; EBV Nuclear Ag Antibody <18.00 U/mL; EBV Virus Capsid Ag IgG Ab <18.00 U/mL; Epstein Barr Virus Early Ag Ab <9.00 U/mL
== END 2023-03-09 12:45 | disposition home or self-care (01) | DRG 442 ==
LOC: ED 15:31 → SUATTDRO 18:51 → EDINP 18:51